=== PATIENT | female | born 1965 ===

== ENCOUNTER 2020-12-28 07:29 | Emergency (ER) | payer OTHER ==
[~2020-12-28] VITALS: Ht 149.9 cm; Wt 90.9 kg
[2020-12-28 07:36] VITALS: TEMP 98.3
[2020-12-28] MEDS ORDERED: CELEXA 20MG20 MG/TAB PO (07:55)
[2020-12-28 08:50] VITALS: BP 165/102; PULSE 70
== END 2020-12-28 08:50 | disposition home or self-care (01) ==
LOC: COL.ER 07:29
DX: R04.0 Epistaxis (principal); I10 Essential (primary) hypertension; Z88.6 Allergy status to analgesic agent